=== PATIENT | male | born 1945 | race Caucasian/White ===

== ENCOUNTER 2018-08-31 10:33 | Outpatient (CLI) | payer MEDICARE, BC ==
--- NOTE | 2018-08-31 11:21 | Diagnostic Imaging Report ---
Indication: Cough Technique: 2 views of the chest Comparison: None Findings: Lungs and pleural spaces are clear. The heart size is normal. The bones are unremarkable. No significant interim change. Impression: Negative
== END 2018-08-31 12:33 | disposition home or self-care (01) ==
LOC: RAD 10:33
DX: J18.9 Pneumonia, unspecified organism (principal); R05 Cough
CPT/HCPCS: 71046